=== PATIENT | male | born 1945 | race Caucasian/White ===

== ENCOUNTER 2020-05-03 07:46 | Day surgery (SDC) | payer MEDICARE, OTHER ==
[~2020-05-03] VITALS: Ht 175.3 cm; Wt 78.6 kg
[~2020-05-03 07:46] MED LIST: ADULT LOW DOSE81 MG PO; GLUCOSAMINE1000 MG PO; LIPITOR40 MG PO; METOPROLOL SUCC25 MG PO; ONE DAILY FOR1 EAC2 PO; PLAVIX75 MG PO
--- NOTE | 2020-05-03 08:46 | NUR ---
05/03/20 0846 Mis Calvillo 0812 PT ARRIVED TO PACU ON 3L VIA NC, VSS. PT ASLEEP AND RESP EVEN AND UNLABORED.
--- NOTE | 2020-05-03 09:40 | OR ---
[facility] [address], [place] [address] Signed DATE OF OPERATION: 05/03/2020 SURGEON: Raghavendra Lozano MD PREOPERATIVE DIAGNOSES: 1. Possible personal history of colonic polyps in 2015 at age 69. 2. Rectal bleeding 6 months ago. POSTOPERATIVE DIAGNOSIS: Minimal to moderate sigmoid diverticulosis. PROCEDURE: Colonoscopy biopsy. ESTIMATED BLOOD LOSS: None. INDICATIONS: Mario is a 74-year-old gentleman, asked to see me for a followup colonoscopy. He spoke of a colonoscopy he thought in the mid 1980s. However that would put him around age 38. He thinks he was actually in his 50s when he had his 1st colonoscopy. He then had another colonoscopy in 2015 at the age of 69. This was performed at the [facility] in [place], [place]. He thinks polyps out at that time. Unfortunately, we did not have the report. He talked about some intermittent rectal bleeding about 6 months ago. He tells me there is no family history of colon cancer or polyps. He does take aspirin and Plavix for his heart. In the office I had given him a pamphlet on colonoscopy and we looked at that together. We reviewed the nature of the test along with the risks including, but not limited to gas bloating, crampy abdominal pain, bleeding, perforation requiring surgery, and missed diagnosis. He also understands the need for IV conscious sedation. He had expressed understanding and wished to proceed. PROCEDURE NOTE: Mario was taken into our endoscopy suite and placed in the left lateral decubitus position. He was given 5 mg of Versed and 100 mcg of fentanyl to cover the case. A digital rectal exam was performed and this revealed a moderately indurated and enlarged prostate gland. No external hemorrhoids. Good sphincter tone. The adult colonoscope was introduced and advanced under direct visualization of camera. It took some extra sedation and abdominal compression and the scope then traveled quite nicely into the cecum itself. He had a good prep. We could easily see the appendiceal orifice and the Electronically Signed By: RAGHAVENDRA LOZANO MD 05/03/20 0940 PATIENT NAME: MARIO AYALA OPERATIVE REPORT DATE OF : 43 REPORT #: [id number] PHYSICIAN: RAGHAVENDRA LOZANO MD PCP: NANY SALAZAR MD REPORT IS CONFIDENTIAL AND NOT TO BE RELEASED WITHOUT AUTHORIZATION [facility] [address], [place] [address] Signed ileocecal valve. The scope was then slowly withdrawn. He probably has a polypectomy scar in his distal right colon. We also noticed diverticula in the sigmoid colon. They were small in size, few to moderate in number, and scattered about. The rectum was unremarkable. He probably has a polypectomy site in the mid rectum. Upon retroflexion of the scope, there was no additional pathology noted above the anal canal. After this, the gas was suctioned out and the colonoscope removed. Mario tolerated the procedure quite well. RECOMMENDATIONS: Mario is welcome to return in 5 years for repeat colonoscopy particular if he had adenomatous polyps back in 2014. Raghavendra Lozano MD ALB/MODL /[id number] cc: [facility] MD Nany Guadalupe MD Copies: RAGHAVENDRA LOZANO MD, ROBERT D DMD ~ Electronically Signed By: RAGHAVENDRA LOZANO MD 05/03/20 0940 PATIENT NAME: MARIO AYALA OPERATIVE REPORT DATE OF : 43 REPORT #: [id number] PHYSICIAN: RAGHAVENDRA LOZANO MD PCP: NANY SALAZAR MD REPORT IS CONFIDENTIAL AND NOT TO BE RELEASED WITHOUT AUTHORIZATION
== END 2020-05-03 09:25 | disposition home or self-care (01) ==
LOC: OPS 07:46 → DS 07:46 → OPS 08:15 → DS 09:00 → OPS 09:00
PROVIDERS: ATTEND Colon & Rectal Surgery
PROC: 0DJD8ZZ Inspection of Lower Intestinal Tract, Via Natural or Artificial Opening Endoscopic (ICD-10-PCS; principal; 2020-05-03 08:15)
DX: Z12.11 Encounter for screening for malignant neoplasm of colon (principal); K57.30 Diverticulosis of large intestine without perforation or abscess without bleeding; K21.9 Gastro-esophageal reflux disease without esophagitis; E78.00 Pure hypercholesterolemia, unspecified; I25.10 Atherosclerotic heart disease of native coronary artery without angina pectoris; N40.0 Benign prostatic hyperplasia without lower urinary tract symptoms; G47.30 Sleep apnea, unspecified; M19.90 Unspecified osteoarthritis, unspecified site; I25.2 Old myocardial infarction; Z86.010 Personal history of colon polyps; Z90.49 Acquired absence of other specified parts of digestive tract; Z95.5 Presence of coronary angioplasty implant and graft; Z79.82 Long term (current) use of aspirin; Z79.899 Other long term (current) drug therapy; Z79.02 Long term (current) use of antithrombotics/antiplatelets
CPT/HCPCS: G0121; 99153; G0500; J2250; J3010; J7121

== ENCOUNTER 2020-05-23 11:51 | Emergency (ER) | payer MEDICARE, OTHER ==
[~2020-05-23] VITALS: Ht 175.3 cm; Wt 78.5 kg
[2020-05-23] MEDS ORDERED: LEVOFLOXACIN750 MG PO ×2 (14:49)
--- NOTE | 2020-05-23 14:59 | EKG ---
[facility] [address] [facility] [place], [place] [address] Signed Normal sinus rhythm Normal ECG When compared with ECG of 02-FEB-2016 12:19, No significant change was found Confirmed by ZACHARY العلي DO ([id number]) on 05/23/2020 2:59:37 PM Electronically Signed By: ZACHARY العلي DO 05/23/20 1459 PATIENT NAME: COLLETTE AYALA Electrocardiogram DATE OF : 43 PHYSICIAN: ZACHARY العلي DO REPORT #: [id number] REPORT IS CONFIDENTIAL AND NOT TO BE RELEASED WITHOUT AUTHORIZATION
== END 2020-05-23 16:51 | disposition home or self-care (01) ==
LOC: ED 11:51
DX: U07.1 COVID-19 (principal); J12.82 Pneumonia due to coronavirus disease 2019; I25.2 Old myocardial infarction; Z79.899 Other long term (current) drug therapy; Z79.82 Long term (current) use of aspirin
CPT/HCPCS: 71045; 80053; 83735; 83880; 84484; 85025; 93005; 93010; 96365; 96366; 99285-25; C9803; J1956; U0003

== ENCOUNTER 2020-05-23 19:58 | Emergency (ER) | payer MEDICARE, OTHER ==
[~2020-05-23] VITALS: Ht 175.3 cm; Wt 78.5 kg
[~2020-05-23 19:58] MED LIST changes: +LEVOFLOXACIN750 MG PO
--- OUTSIDE RECORDS SUMMARY | 2020-05-23 20:00 | XMS ---
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 Jami VISIT COUNT (12 MO.) 2 [facility] TOTAL 2 NOTE: Visits indicate total known visits. ED/UCC VISIT TRACKING (12 MO.) 05/23/2020 19:58 [facility] [place] TYPE: Emergency COMPLAINT: - SOB 05/23/2020 11:51 [facility] [place] TYPE: Emergency COMPLAINT: - SOB INPATIENT VISIT TRACKING (12 MO.) No inpatient visits to display in this time frame [email or web address]
--- NOTE | 2020-05-24 15:25 | EKG ---
[facility] [address] [facility] [place], [place] [address] Signed Normal sinus rhythm Nonspecific T wave abnormality Abnormal ECG When compared with ECG of 23-MAY-2020 13:16, No significant change was found Confirmed by ZACHARY العلي DO ([id number]) on 05/24/2020 3:25:38 PM Electronically Signed By: ZACHARY العلي DO 05/24/20 1525 PATIENT NAME: LUCYCOLLETTEANCE Electrocardiogram DATE OF : 43 PHYSICIAN: ZACHARY العلي DO REPORT #: [id number] REPORT IS CONFIDENTIAL AND NOT TO BE RELEASED WITHOUT AUTHORIZATION
== END 2020-05-23 22:17 | disposition home or self-care (01) ==
LOC: ED 19:58
DX: U07.1 COVID-19 (principal); I25.2 Old myocardial infarction; Z79.899 Other long term (current) drug therapy; Z79.82 Long term (current) use of aspirin
CPT/HCPCS: 80053; 83735; 84484; 85025; 93005; 93010; 99285-25

== ENCOUNTER 2020-05-30 13:54 | Emergency (ER) | payer MEDICARE, OTHER ==
[~2020-05-30] VITALS: Ht 175.3 cm; Wt 78.5 kg
--- OUTSIDE RECORDS SUMMARY | 2020-05-30 13:56 | XMS ---
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 E.Janneth VISIT COUNT (12 MO.) [address] [place] [address] TOTAL 3 NOTE: Visits indicate total known visits. ED/UCC VISIT TRACKING (12 MO.) 05/30/2020 13:[address] 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 [place] TYPE: Emergency COMPLAINT: - SOB DIAGNOSES: - intermediate (current) use of aspirin - COVID-19 - Shortness of breath - Old myocardial infarction - Other skilled nursing (current) drug therapy INPATIENT VISIT TRACKING (12 MO.) No inpatient visits to display in this time frame [email or web address]
[2020-05-30] MEDS ORDERED: LIDODERM1 EACH TD (15:35)
[2020-05-30] MEDS ORDERED: NAPROSYN500 MG PO (15:35)
== END 2020-05-30 15:56 | disposition home or self-care (01) ==
LOC: ED 13:54
DX: S22.42XA Multiple fractures of ribs, left side, initial encounter for closed fracture (principal); I25.2 Old myocardial infarction; Z79.899 Other long term (current) drug therapy; Z79.02 Long term (current) use of antithrombotics/antiplatelets; Z79.82 Long term (current) use of aspirin; W18.30XA Fall on same level, unspecified, initial encounter
CPT/HCPCS: 71101; 99283-25